=== PATIENT | female | born 1980 | race Caucasian/White ===

== ENCOUNTER 2020-03-25 08:27 | Outpatient (CLI) | payer OTHER | END 2020-03-25 23:59 | disposition home or self-care (01) | LOC: STAR 08:27 | PROVIDERS: ATTEND Surgery | DX: Z02.9 Encounter for administrative examinations, unspecified (principal) ==

== ENCOUNTER 2020-03-29 08:14 | Day surgery (SDC) | payer OTHER ==
[~2020-03-29] VITALS: Ht 198.1 cm; Wt 81.2 kg
[~2020-03-29 08:14] MED LIST: EPHEDRINE 50 MG/ML, 1ML IVPush PRN; HYDROmorphone 1 MG/ML, 1ML INJ IVPush PRN; LABETALOL 5MG/ML, 20ML IV PRN; ONDANSETRON 2MG/ML, 2ML IVPush PRN; OXYcodone 5 MG/5 ML ORAL.SOL UDC PO PRN; PROMETHAZINE 25 MG/ML, 1ML IVPush PRN; hydrALAzine 20 MG/ML, 1ML IV PRN
[2020-03-29] MEDS ORDERED: LACTATED RINGERS 1,000 ML IV SCH (08:31)
[2020-03-29 08:45] VITALS: BP 129/80
[2020-03-29] MEDS ORDERED: ACETAMINOPHEN 500 MG TABLET PO ONE (09:00)
[2020-03-29] MEDS ORDERED: CHLORHEXIDINE 15 ML UDC MM ONE (09:00)
[2020-03-29] MEDS ORDERED: MIDAZOLAM 1 MG/ML, 2ML ONE (10:24)
[2020-03-29] MEDS ORDERED: FENTANYL PF 100 MCG/2ML ONE ×4 (10:24→12:46)
[2020-03-29] MEDS ORDERED: LIDOCAINE-MPF 2% ,5ML ONE (11:21)
[2020-03-29] MEDS ORDERED: KETOROLAC 30 MG/1 ML ONE (11:35)
[2020-03-29] MEDS ORDERED: SUCCINYLCHOLINE 20 MG/ML, 10ML ONE (11:49)
[2020-03-29] MEDS ORDERED: PROPOFOL 10 MG/ML, 20ML ONE (11:49)
[2020-03-29] MEDS ORDERED: ONDANSETRON 2MG/ML, 2ML ONE (11:49)
[2020-03-29] MEDS ORDERED: DEXAMETHASONE 4 MG/ML, 1ML ONE (11:49)
[2020-03-29] MEDS: FENTANYL PF 100 MCG/2ML IV PRN ×3 (12:47→13:16)
[2020-03-29 12:52] LABS: 10MIN %DROP IOPTH 87 %; 5MIN %DROP IOPTH 80 %; IOPTH BASELINE 288 pg/mL; SAMPLE 5 %DROP IOPTH 92 %
[2020-03-29] MEDS ORDERED: OXYcodone 5 MG/5 ML ORAL.SOL UDC ONE (13:00)
== END 2020-03-29 14:45 | disposition home or self-care (01) ==
LOC: OUT 08:14
PROVIDERS: ATTEND Surgery
DX: E21.0 Primary hyperparathyroidism (principal); Z11.59 Encounter for screening for other viral diseases; F17.210 Nicotine dependence, cigarettes, uncomplicated; Z98.890 Other specified postprocedural states; Z80.8 Family history of malignant neoplasm of other organs or systems; Z82.49 Family history of ischemic heart disease and other diseases of the circulatory system; Z82.3 Family history of stroke
CPT/HCPCS: 36415; 60500; 83970; 87635; 88305; 88331; C1760; J0330; J1100; J1885; J2250; J2405; J2704; J3010